=== PATIENT | female | born 1990 | race Caucasian/White ===

== ENCOUNTER 2017-02-15 07:13 | Emergency (ER) | payer OTHER ==
[~2017-02-15] VITALS: Ht 162.6 cm; Wt 58.0 kg
[2017-02-15 07:16] VITALS: Ht 162.6 cm; Wt 58.0 kg
[2017-02-15] MEDS ORDERED: AZITHROMYCIN 250 MG TAB PO ONE (07:30)
--- NOTE | 2017-02-15 07:40 | ERD ---
ER Documentation Chief Complaint Date/Time DATE: 02/15/17 TIME: 07:38 Chief Complaint Patient states she needs a blood test HPI 26-year-old female otherwise healthy presents emergency department with same diagnosis her boyfriend that he has immediate. She is asymptomatic. She has not had any vaginal discharge, pelvic pain, vaginal odor, bleeding or fevers or chills. Menstrual period that started yesterday. She has had unprotected sexual intercourse with him recently. ROS All systems reviewed and are negative except as per history of present illness. Allergies Allergies: Coded Allergies: No Known Allergy (Unverified , 02/15/17) Physical Exam Vitals Vital Signs Date Time Temp Pulse Resp B/P Pulse Ox O2 Delivery O2 Flow Rate FiO2 02/15/17 07:16 97.9 82 20 119/71 100 Physical Exam General: Well-developed, well-nourished. The patient appears in no acute distress. HEENT: Head is normocephalic, atraumatic. No scleral icterus. Neck: Supple. Nontender. Lungs: Clear to auscultation. Normal air movement. Heart: Regular rate and rhythm. S1 and S2 are normal. No murmurs, gallops, or rubs. Abdomen: Nondistended. Extremities: No clubbing or cyanosis. Moving extremities x 4. No weakness. Neurologic: Alert and oriented 3. No focal deficits. Normal speech and gait. Skin: Normal turgor. No rash or lesions. Results 24 hrs Current Medications Medications (Trade) Dose Ordered Sig/Anjel Route PRN Reason Start Time Stop Time Status Last Admin Dose Admin Azithromycin (Zithromax) 1,000 mg ONCE ONCE PO 02/15/17 07:30 02/15/17 07:31 DC Procedures/MDM 26-year-old female was treated for suspected chlamydia given her recent exposure and positive testing with her boyfriend.Patient does not have any clinical signs or symptoms indicate PID, she was treated with Zithromax given that he had chlamydia. I have asked her to return again with your primary doctor in approximately 4-6 weeks. Departure Diagnosis: Primary Impression: Encounter for laboratory test Additional Impression: STD exposure Condition: Good Patient Instructions: Std, Suspected (Culture Only) Additional Instructions: Recheck urine with your primary doctor in 4-6 weeks. Return sooner if any worsening or new symptoms. MARIBETH LITTLEJOHN PA-C Feb 15, 2017 07:40
[2017-02-15 08:15] VITALS: BP 121/71; RESP 20
== END 2017-02-15 08:16 | disposition home or self-care (01) ==
LOC: FTE 07:13
DX: Z00.00 Encounter for general adult medical examination without abnormal findings (principal); Z20.2 Contact with and (suspected) exposure to infections with a predominantly sexual mode of transmission
CPT/HCPCS: 87591; Z7502; Z7610; 99283